=== PATIENT | female | born 1960 | race Caucasian/White ===

== ENCOUNTER → 2020-11-02 | Outpatient (CLI) | payer OTHER | LOC: HEART 5 08:58 | DX: I10 Essential (primary) hypertension (principal); I70.0 Atherosclerosis of aorta; I34.0 Nonrheumatic mitral (valve) insufficiency; R93.1 Abnormal findings on diagnostic imaging of heart and coronary circulation; Z82.49 Family history of ischemic heart disease and other diseases of the circulatory system | CPT/HCPCS: 93306 ==

== ENCOUNTER → 2020-12-22 | Outpatient (CLI) | payer OTHER | LOC: KOH-I 11:17 | DX: M54.5 Low back pain (principal); M54.2 Cervicalgia; M47.812 Spondylosis without myelopathy or radiculopathy, cervical region; M48.02 Spinal stenosis, cervical region; M47.816 Spondylosis without myelopathy or radiculopathy, lumbar region | CPT/HCPCS: 72050; 72110 ==

== ENCOUNTER → 2021-03-15 | Outpatient (CLI) | payer OTHER | LOC: KOH-I 09:55 | DX: M25.551 Pain in right hip (principal) | CPT/HCPCS: 73502 ==

== ENCOUNTER → 2021-03-21 | Outpatient (CLI) | payer OTHER | LOC: MRI 13:38 | DX: M25.551 Pain in right hip (principal); B99.9 Unspecified infectious disease; M16.11 Unilateral primary osteoarthritis, right hip; D17.39 Benign lipomatous neoplasm of skin and subcutaneous tissue of other sites | CPT/HCPCS: 72195 ==

== ENCOUNTER → 2022-04-05 | Outpatient (CLI) | payer OTHER | LOC: KOH-I 14:56 | DX: R05.9 Cough, unspecified (principal) | CPT/HCPCS: 71046 ==

== ENCOUNTER 2022-06-12 18:17 | Emergency (ER) | payer OTHER ==
[2022-06-12 18:54] LABS: HEMOGLOBIN 15.2 gm/dl (12.3-15.3); RED BLOOD COUNT 4.51 M/UL (4.00-5.10); WHITE BLOOD COUNT 9.8 K/UL (4.5-11.0)
[2022-06-12 20:04] LABS: BUN/CREATININE RATIO 13 (0-10)
[2022-06-13] MEDS ORDERED: PROTONIX 40 MG40 M1 PO (02:22)
== END 2022-06-12 19:43 | disposition left against medical advice (07) ==
LOC: ER1 18:17
PROVIDERS: Physician Assistant Medical
DX: R07.9 Chest pain, unspecified (principal); I10 Essential (primary) hypertension
CPT/HCPCS: 80053; 82550; 82553; 84439; 84443; 84484; 85025; 93005; 99283

== ENCOUNTER 2022-06-12 22:18 | Emergency (ER) | payer OTHER ==
[2022-06-13] MEDS ORDERED: PROTONIX 40 MG40 M1 PO (02:22)
== END 2022-06-13 02:30 | disposition home or self-care (01) ==
LOC: ER1 22:18
DX: R10.13 Epigastric pain (principal); R10.10 Upper abdominal pain, unspecified; R11.0 Nausea; D17.79 Benign lipomatous neoplasm of other sites; Z88.7 Allergy status to serum and vaccine
CPT/HCPCS: 71045; 81001; 82550; 82553; 83690; 84484; 93005; 96374; 96375; 99285; C9113; J2405; Q9967